=== PATIENT | male | born 1950 | race Caucasian/White ===

== ENCOUNTER 2021-01-30 19:42 | Inpatient (IN) | payer MEDICARE ==
[~2021-01-30] VITALS: Ht 177.8 cm; Wt 99.9 kg
[2021-01-30 20:30] LABS: BASOPHILS ABSOLUTE AUTO 0.01 K/mm3 (0.00-0.23); BASOPHILS PERCENT AUTO 0 % (0-2); EOSINOPHILS ABSOLUTE AUTO 0.04 K/mm3 (0.00-0.68); EOSINOPHILS PERCENT AUTO 1 % (0-6); Hemoglobin 14.9 g/dL (13.5-17.5); IMMATURE GRAN ABSOLUTE AUTO 0.05 K/mm3 (0.00-0.10); IMMATURE GRAN PERCENT AUTO 1 % (0-1); LYMPHOCYTES PERCENT AUTO 10 % (21-46); MONOCYTES ABSOLUTE AUTO 0.24 K/mm3 (0.16-1.47); MONOCYTES PERCENT AUTO 4 % (4-13); Mean Corpuscular HGB 31.5 pg (26.0-34.0); Mean Corpuscular HGB Conc 34.7 g/dL (31.5-36.5); Mean Corpuscular Volume 91 fL (80-100); Mean Platelet Volume 9.7 fL (9.1-12.4); NEUTROPHILS ABSOLUTE AUTO 5.72 K/mm3 (1.96-9.15); NEUTROPHILS PERCENT AUTO 85 % (41-73); Platelet Count 339 K/mm3 (150-400); RDW Coefficient Variation 12.4 % (11.7-14.2); RDW Standard Deviation 41.7 fL (35.1-46.3); Red Blood Cell Count 4.73 M/mm3 (4.30-5.90); White Blood Cell Count 6.76 K/mm3 (4.00-11.30)
[2021-01-30 20:51] LABS: Alanine Aminotransfer (ALT/SGP 59 U/L (12-78); Albumin, Blood 2.8 g/dL (3.4-5.0); Albumin/Globulin Ratio 0.6 (0.8-1.8); Alk Phos 61 U/L (50-136); Anion Gap 8 mmol/L (6-16); Aspartate Aminotrans (AST/SGOT 43 U/L (12-37); Bilirubin, Total 0.7 mg/dL (0.1-1.0); Blood Urea Nitrogen 21 mg/dL (8-24); Bun/Creatinine Ratio 28.8 (12.0-20.0); CO2, Blood 28 mmol/L (21-32); Calcium, Blood 9.1 mg/dL (8.5-10.1); Chloride, Blood 102 mmol/L (98-108); Creatinine, Blood 0.73 mg/dL (0.60-1.20); Globulin, Blood 4.7 g/dL (2.2-4.0); Glomerular Filtration Rate >60 (60-); Glucose, Blood 105 mg/dL (70-99); Potassium, Blood 3.4 mmol/L (3.5-5.5); Sodium, Blood 138 mmol/L (136-145); Total Protein, Blood 7.5 g/dL (6.4-8.2); Troponin I <0.015 ng/mL (0.000-0.040)
[2021-01-30 22:46] LABS: CPK Creatine Kinase 46 U/L (39-308); Lactate Dehydrogenase (Ld),Bld 395 U/L (100-240)
[2021-01-30 23:08] LABS: International Normalized Ratio 1.12; Prothrombin Time Results 11.7 Sec (9.7-11.5)
--- NOTE | 2021-01-31 00:13 | NUR ---
PATIENT ADMITTED TO FLOOR FOR COVID-19, RESPIRTORY FAILURE, PNEUMONIA. ARRIVED VIA GURNEY, INDPENDENTLY TRANSFERRED SELF TO BED. VERY ACTIVE IN DAILY LIVING, HAS BEEN FIGHTING VIRUS FOR 2 WEEKS AT HOME, NEGATIVE COVID 1 WEEK AGO, NOW POSITIVE. SATS ON ARRIVAL 83% RA. PLACED ON 7 LITERS HF NC FOR SATS 94% AT REST. TOOK OVER 5 MINUTES TO GET SATS UP. SHALLOW BREATHER, STATES DIFFICULT TO TAKE DEEP BREATH, AND DISCOMFORT. ENCOURAGED DEEP BREATHING, EDUCATION PROVIDED ON COURSE OF VIRUS AND HOW TO FIGHT IT, DISCUSSED BREATHING EXERCISES. PLACED ON CONTINUOUS PULSE OX. LS CRACKLES IN BASES AND TIGHT. DOES NOT WANT VACCINATION OR OTHER TREATMENTS BESIDES STERIODS AND BLOOD THINNERS. AOX3, ABLE TO BE INDEPENDENT BUT DISCUSSED MINIMAL EXERTION AT THIS TIME. NO MEDICAL HISTORY, NO HOME MEDS, HAS BEEN HEALTHY MOST OF LIFE. WILL CONTINUE TO MONITOR, CALL LIGHT IN REACH.
--- NOTE | 2021-01-31 05:37 | NUR ---
SHIFT SUMMARY: AOX3, COOPERATIVE. ONLY WANTS STERIOD AND ANTICOUAGULATION THERAPY FOR COVID-19 INFECTION. SINCE ADMISSION HAS BEEN SLEEPING WELL. DID GO TO CT WHICH SHOWED NO PE. D-DIMER ELEVATION 16.48, PT-11.7, CRP 6.880. CURRENTLY ON 7L HF NC, SATS AVERAGE 92% AT REST. DYSPENIC WITH EXERTION. CONTINUES TO BREATH DEEP DUE TO DISCOMFORT AND COUGH. ENCOURAGED COUGH AND AIR MOVEMENT. LUNGS ARE CRACKLES IN BASES, TIGHT. EDUCATION PROVIDED ON DISEASE PROCESS, TX, AND CARE. VS HAVE BEEN WNL. URINE OUTPUT SMALL WITH CONCENTRATED URINE, DARK YELLOW. ENCOURAGE MORE FLUID INTAKE. ABLE TO MAKE NEEDS KNOWN. CALL LIGHT IN REACH.
[2021-01-31 05:45] LABS: BASOPHILS ABSOLUTE AUTO 0.01 K/mm3 (0.00-0.23); BASOPHILS PERCENT AUTO 0 % (0-2); EOSINOPHILS ABSOLUTE AUTO 0.01 K/mm3 (0.00-0.68); EOSINOPHILS PERCENT AUTO 0 % (0-6); Hematocrit 38.8 % (37.0-53.0); Hemoglobin 13.2 g/dL (13.5-17.5); IMMATURE GRAN ABSOLUTE AUTO 0.05 K/mm3 (0.00-0.10); IMMATURE GRAN PERCENT AUTO 1 % (0-1); LYMPHOCYTES ABSOLUTE AUTO 0.46 K/mm3 (0.84-5.20); LYMPHOCYTES PERCENT AUTO 7 % (21-46); MONOCYTES ABSOLUTE AUTO 0.13 K/mm3 (0.16-1.47); MONOCYTES PERCENT AUTO 2 % (4-13); Mean Corpuscular HGB 31.3 pg (26.0-34.0); Mean Corpuscular Volume 92 fL (80-100); Mean Platelet Volume 10.2 fL (9.1-12.4); NEUTROPHILS PERCENT AUTO 90 % (41-73); Platelet Count 302 K/mm3 (150-400); RDW Coefficient Variation 12.5 % (11.7-14.2); RDW Standard Deviation 42.2 fL (35.1-46.3); Red Blood Cell Count 4.22 M/mm3 (4.30-5.90); White Blood Cell Count 6.66 K/mm3 (4.00-11.30)
[2021-01-31 06:35] LABS: Alanine Aminotransfer (ALT/SGP 50 U/L (12-78); Albumin, Blood 2.5 g/dL (3.4-5.0); Albumin/Globulin Ratio 0.7 (0.8-1.8); Alk Phos 57 U/L (50-136); Anion Gap 10 mmol/L (6-16); Aspartate Aminotrans (AST/SGOT 40 U/L (12-37); Bilirubin, Total 0.6 mg/dL (0.1-1.0); Blood Urea Nitrogen 21 mg/dL (8-24); Bun/Creatinine Ratio 30.5 (12.0-20.0); CO2, Blood 23 mmol/L (21-32); Calcium, Blood 8.2 mg/dL (8.5-10.1); Chloride, Blood 105 mmol/L (98-108); Creatinine, Blood 0.69 mg/dL (0.60-1.20); Globulin, Blood 3.6 g/dL (2.2-4.0); Glomerular Filtration Rate >60 (60-); Glucose, Blood 115 mg/dL (70-99); Potassium, Blood 4.4 mmol/L (3.5-5.5); Sodium, Blood 138 mmol/L (136-145); Total Protein, Blood 6.1 g/dL (6.4-8.2)
--- NOTE | 2021-01-31 18:01 | NUR ---
PT IS A/OX4, PLEASANT AND COOPERATIVE. THE PT IS UP IND IN HIS ROOM. THE PT WAS ON 8LMIN O2 VIA [place] THIS AM AND HAS BEEN TITRATED DOWN TO 3L/MIN O2 AT REST. THE PT'S O2 SAT'S DID HOWEVER DROP INTO THE LOW 80%'s WHEN UP TO THE BATHROOM. THE PT SEEMED TO RECOVER QUICKLY THOUGH, ON RETURN TO THE BED. PT DENIED ANY PAIN T/O THE DAY. CALL LIGHT IN REACH, WILL CONTINUE TO MONITOR AND ASSESS FOR CHANGES
[2021-02-01 05:15] LABS: Hematocrit 37.9 % (37.0-53.0); Hemoglobin 12.9 g/dL (13.5-17.5); Mean Corpuscular HGB 31.3 pg (26.0-34.0); Mean Corpuscular Volume 92 fL (80-100); Mean Platelet Volume 9.7 fL (9.1-12.4); Platelet Count 305 K/mm3 (150-400); RDW Coefficient Variation 12.8 % (11.7-14.2); RDW Standard Deviation 43.2 fL (35.1-46.3); Red Blood Cell Count 4.12 M/mm3 (4.30-5.90); White Blood Cell Count 6.27 K/mm3 (4.00-11.30)
--- NOTE | 2021-02-01 06:04 | NUR ---
SHIFT SUMMARY PT A/O X4; PLEASANT AND COOPERATIVE WITH CARE. IND IN THE ROOM AND CURRENTLY ON 3 LITERS O2. PT HAS BEEN SATTING IN THE LOW 90'S FOR THE MAJORITY OF THE SHIFT. PT DESATS WITH ACTIVITY BUT RECOVERS FAIRLY QUICKLY. WILL POSSIBLY DC HOME TODAY. VSS. WILL REPORT TO DAY SHIFT RN.
[2021-02-01 06:28] LABS: Alanine Aminotransfer (ALT/SGP 50 U/L (12-78); Albumin, Blood 2.4 g/dL (3.4-5.0); Albumin/Globulin Ratio 0.7 (0.8-1.8); Alk Phos 49 U/L (50-136); Anion Gap 9 mmol/L (6-16); Aspartate Aminotrans (AST/SGOT 40 U/L (12-37); Bilirubin, Total 0.5 mg/dL (0.1-1.0); Blood Urea Nitrogen 21 mg/dL (8-24); Bun/Creatinine Ratio 33.1 (12.0-20.0); CO2, Blood 24 mmol/L (21-32); Calcium, Blood 8.5 mg/dL (8.5-10.1); Chloride, Blood 107 mmol/L (98-108); Creatinine, Blood 0.64 mg/dL (0.60-1.20); Ferritin, Serum 491 ng/mL (26-388); Globulin, Blood 3.5 g/dL (2.2-4.0); Glomerular Filtration Rate >60 (60-); Glucose, Blood 89 mg/dL (70-99); Potassium, Blood 3.9 mmol/L (3.5-5.5); Sodium, Blood 140 mmol/L (136-145); Total Protein, Blood 5.9 g/dL (6.4-8.2)
[2021-02-01] MEDS ORDERED: DECADRON6 M2 PO (15:27)
[2021-02-01] MEDS ORDERED: ASPI325 PO (15:27)
[2021-02-01] MEDS ORDERED: FAMO40 PO (15:28)
--- NOTE | 2021-02-01 16:29 | NUR ---
DISCHARGE SUMMARY: PT EDUCATED ON DISCHARGE INTSRUCTIONS, MEDICATIONS, HOME O2 USE/SAFETY CONCERNS. PT VU. BELONGINGS PACKED UP AND SENT WITH PT. PT ESCORTED TO POV VIA WHEELCHAIR BY ANA SALGUERO.
== END 2021-02-01 16:48 | disposition home or self-care (01) | DRG 177 ==
LOC: ER 19:42 → MEDS 22:07
PROVIDERS: Internal Medicine; Physician Assistant; Student in an Organized Health Care Education/Training Program; ADMIT Internal Medicine
PROC: 8E0ZXY6 Isolation (ICD-10-PCS; principal; 2021-01-30)
PROC: 3E0333Z Introduction of Anti-inflammatory into Peripheral Vein, Percutaneous Approach (ICD-10-PCS; 2021-01-30)
PROC: XW033E5 Introduction of Remdesivir Anti-infective into Peripheral Vein, Percutaneous Approach, New Technology Group 5 (ICD-10-PCS; 2021-01-30)
DX: U07.1 COVID-19 (principal); J96.01 Acute respiratory failure with hypoxia; J12.82 Pneumonia due to coronavirus disease 2019; Z66 Do not resuscitate; E87.6 Hypokalemia; I10 Essential (primary) hypertension; Z98.890 Other specified postprocedural states
CPT/HCPCS: 36415; 71045; 71260; 80053; 82550; 82728; 83615; 84484; 85025; 85027; 85379; 85610; 85651; 86140; 94760; 94761; 94762; 96361; 96374; 97161; 97530; 99285-25; A9270; J1100; J1650; J7030; Q9967